=== PATIENT | male | born 1990 | race Caucasian/White ===

== ENCOUNTER 2016-09-01 16:03 | Emergency (ER) | payer OTHER ==
[~2016-09-01] VITALS: Ht 172.7 cm; Wt 64.4 kg
[2016-09-01 16:24] VITALS: BP 130/91
[2016-09-01] MEDS ORDERED: BACITRACIN OINT 500 UNITS/GM PKT TP ONE (16:40)
[2016-09-01] MEDS ORDERED: LIDOCAINE 1% 500 MG/50 ML VIAL INJ ONE (16:40)
--- NOTE | 2016-09-01 17:05 | NUR ---
PRESENTS TO ER FOR EVALUATION OF LACERATION TO LEFT THUMB SUSTAINED 30 MINUTES PRIOR TO ARRIVAL AT ER. . DENIES N/V/D; SKIN IS PINK/WARM/DRY; AAOX4 WITH EVEN AND STEADY GAIT; LUNGS CLEAR BL; HR EVEN AND REGULAR; PT DENIES ANY FEVER, CP, SOB, OR COUGH AT THIS TIME; PATIENT STATES PAIN OF 5/10 AT THIS TIME; VSS; PATIENT POSITIONED FOR COMFORT; HOB ELEVATED; BEDRAILS UP X2; BED DOWN. ER MD MADE AWARE OF PT STATUS.
[2016-09-01 18:15] VITALS: BP 128/88
== END 2016-09-01 18:15 | disposition home or self-care (01) ==
LOC: MED 16:03
DX: S61.012A Laceration without foreign body of left thumb without damage to nail, initial encounter (principal); F17.210 Nicotine dependence, cigarettes, uncomplicated; X58.XXXA Exposure to other specified factors, initial encounter; Y93.89 Activity, other specified; Y92.89 Other specified places as the place of occurrence of the external cause; Y99.8 Other external cause status
CPT/HCPCS: 12001; 99283; J2001

== ENCOUNTER 2017-02-22 13:39 | Emergency (ER) | payer OTHER ==
[~2017-02-22] VITALS: Ht 172.7 cm; Wt 63.0 kg
[2017-02-22 14:10] VITALS: BP 132/92
[2017-02-22] MEDS ORDERED: ACETAMINOPHEN 325 MG TAB ONE (14:19)
[2017-02-22 22:10] VITALS: BP 127/83
== END 2017-02-22 22:10 | disposition home or self-care (01) ==
LOC: MED 13:39
DX: J09.X2 Influenza due to identified novel influenza A virus with other respiratory manifestations (principal)
CPT/HCPCS: 36415; 71046; 87804; 99285

== ENCOUNTER 2017-07-28 04:06 | Emergency (ER) | payer OTHER ==
[~2017-07-28] VITALS: Ht 172.7 cm; Wt 63.5 kg
--- NOTE | 2017-07-28 04:10 | NUR ---
PATIENT PRESENTS TO ED WITH COUGH X3 DAYS. PT DENIES N/V/D; SKIN IS PINK/WARM/DRY; AAOX4 WITH EVEN AND STEADY GAIT; LUNGS CLEAR BL; HR EVEN AND REGULAR; PT DENIES ANY FEVER, CP, SOB AT THIS TIME; PATIENT STATES PAIN OF 6/10 AT THIS TIME; VSS; PATIENT POSITIONED FOR COMFORT; HOB ELEVATED; BEDRAILS UP X1; BED DOWN. ER MD MADE AWARE OF PT STATUS.
[2017-07-28 04:13] VITALS: BP 137/81
[2017-07-28] MEDS ORDERED: AMOXICILLIN 500 MG CAP PO ONE (04:25)
--- NOTE | 2017-07-28 04:34 | NUR ---
Patient discharged with v/s stable. Written and verbal after care instructions given and explained. Patient alert, oriented and verbalized understanding of instructions. Ambulatory with steady gait. All questions addressed prior to discharge. ID band removed. Patient advised to follow up with PMD. Rx of AMOXICILLIN, PROMETHAZINE, given. Patient educated on indication of medication including possible reaction and side effects. Opportunity to ask questions provided and answered.
[2017-07-28 04:36] VITALS: BP 137/81
== END 2017-07-28 04:34 | disposition home or self-care (01) ==
LOC: MED 04:06
DX: J02.9 Acute pharyngitis, unspecified (principal); R03.0 Elevated blood-pressure reading, without diagnosis of hypertension
CPT/HCPCS: 99283

== ENCOUNTER 2017-08-03 10:53 | Emergency (ER) | payer OTHER ==
[~2017-08-03] VITALS: Ht 172.7 cm; Wt 64.9 kg
[2017-08-03 11:00] VITALS: BP 108/67
--- NOTE | 2017-08-03 11:05 | NUR ---
PATIENT TO BED 11 AT THIS TIME.
--- NOTE | 2017-08-03 11:11 | NUR ---
PATIENT PRESENTS TO ED WITH STATES WAS DX BACTERIAL PHARYNGITIS X 1 AGO RX AMOXICILLIN AND COUGH MEDICINE ---CONTINUES WITH RHINORRHEA AND MILD COUGH; REQUESTING EXCUSE BACK TO WORK OR A DAY OFF ---WORKS A MOTEL MANAGER----FULL CLEAR SPEECH DENIES NASAL CONGESTION . DENIES N/V/D; SKIN IS PINK/WARM/DRY; AAOX4 WITH EVEN AND STEADY GAIT; LUNGS CLEAR BL; HR EVEN AND REGULAR; PT DENIES ANY FEVER, CP, SOB, OR COUGH AT THIS TIME; PATIENT STATES PAIN OF 0/10 AT THIS TIME; VSS; PATIENT POSITIONED FOR COMFORT; HOB ELEVATED; BEDRAILS UP X2; BED DOWN. ER MD MADE AWARE OF PT STATUS.
[2017-08-03 11:16] VITALS: BP 108/67
--- NOTE | 2017-08-03 11:16 | NUR ---
Patient discharged with v/s stable. Written and verbal after care instructions given and explained. Patient alert, oriented and verbalized understanding of instructions. Ambulatory with steady gait. All questions addressed prior to discharge. ID band removed. Patient advised to follow up with PMD. Rx of PREDNISONE/SUDAFED given. Patient educated on indication of medication including possible reaction and side effects. Opportunity to ask questions provided and answered.
== END 2017-08-03 11:16 | disposition home or self-care (01) ==
LOC: MED 10:53
DX: J06.9 Acute upper respiratory infection, unspecified (principal); F17.210 Nicotine dependence, cigarettes, uncomplicated
CPT/HCPCS: 99283